=== PATIENT | male | born 1975 | race American Indian/Alaskan Native ===

== ENCOUNTER → 2018-07-10 | Outpatient (CLI) | payer OTHER ==
[2018-07-10 10:05] LABS: PLATELET COUNT, AUTOMATED 220 K/uL (150-450)
[2018-07-10 11:19] LABS: LDL CHOLESTEROL 136 mg/dl
== END ==
LOC: LAB 09:26
DX: Z00.00 Encounter for general adult medical examination without abnormal findings (principal); E27.9 Disorder of adrenal gland, unspecified; D50.9 Iron deficiency anemia, unspecified
CPT/HCPCS: 36415; 82040; 82247; 82306; 82310; 82374; 82435; 82465; 82565; 82607; 82728; 82746; 82947; 83001; 83002; 83036; 83540; 83550; 83718; 84075; 84132; 84153; 84155; 84295; 84436; 84439; 84443; 84450; 84460; 84478; 84479; 84480; 84481; 84482; 84520; 85025; 86038; 86140; 86141; 86376